=== PATIENT | male | born 1960 | race Caucasian/White ===

== ENCOUNTER → 2019-06-04 07:57 | Outpatient (CLI) | payer BC ==
[2014-11-12 12:09] VITALS: BMI 28.6
--- NOTE | ~2019-06-04 | ST ---
PATIENT:JOSEPH JIMÉNEZ MEDICAL RECORD: [id number] SEX: M LOCATION:[facility] ORDER #: ADMISSION DATE: 06/04/19 AGE OF PATIENT: 58 REFERRING PHYSICIAN: INTERPRETING PHYSICIAN: NEIL REYNOSO MD DATE OF SERVICE: 06/04/2019 Nuclear Stress Test INDICATIONS: Angina, coronary artery disease, abnormal ECG, preoperative evaluation. He was exercised on standard Lexiscan protocol with 33 mCi of sestamibi injected at peak stress, 11 mCi used previously for rest images. FINDINGS: Gated SPECT reveals a decreased ejection fraction at 36% with decreased thickening and brightening throughout the anterior segments. SPECT Imaging: Cardiolite was used as myocardial perfusion agent. There is a fixed perfusion defect anteriorly and apically compatible with previous anteroapical myocardial infarction; however, there is a mixed perfusion defect, partially fixed, partially reversible throughout the inferior segments. This includes the basal, mid, apical, inferior segments. OVERALL IMPRESSION: This is a high-risk abnormal nuclear stress test showing an ischemic cardiomyopathy, ejection fraction 36%, suggestive of a previous myocardial infarction with ongoing continued ischemia suggestive of multivessel coronary artery disease. TRANSINT:[id number] Voice Confirmation ID: [id number] DOCUMENT ID: [id number] NEIL REYNOSO MD CC: DELMI GONZALEZ [id number] DICTATION DATE: 06/07/19 1045 CASHIER AND SALESPERSON: 06/08/19 0337 [facility] CLI 06/04/19 [place] [address] [place] [address]
[~2019-06-04 07:57] MED LIST: ASPIRIN325 MG; DESERYL100 MG PO; DIOVAN HCT 160/1 TAB; DULERA 100 MCG8.8 GM; DULERA 100 MCG8.8 GM INH; GLUCOTROL 5 MG T5 MG PO; HYDROCODON-ACET15 ML PO; JANUMET 50-1,001 TAB PO; JANUMET 50-5001 TAB; JANUMET 50-5001 TAB PO; LIPITOR20 MG PO; LISINOPRIL2.5 MG PO; NITROLINGUAL SP12 GM SL; PLAVIX75 MG PO; PROTONIX40 MG PO; REGLAN; REGLAN10 MG PO; SINGULAIR10 MG; SINGULAIR10 MG PO; TENORMIN50 MG PO; WELCHOL625 MG; WELLBUTRIN XL150 M1 PO; XOPENEX HFA15 GM; XOPENEX HFA15 GM INH; ZETIA10 MG PO; ZOFRAN ODT4 MG/UDTAB PO; ZYLOPRIM300 MG
== END | disposition home or self-care (01) ==
LOC: D.HCCARDIO 05-31 09:30 → D.HCCECHO 05-31 09:30 → D.HCCARDIO 07:57
PROVIDERS: ATTEND Internal Medicine Interventional Cardiology
DX: I25.10 Atherosclerotic heart disease of native coronary artery without angina pectoris (principal)

== ENCOUNTER 2019-06-11 06:56 | Outpatient (CLI) | payer BC ==
[~2019-06-11] VITALS: Ht 181.9 cm; Wt 95.5 kg
--- NOTE | ~2019-06-11 | OP ---
PATIENT NAME: JOSEPH JIMÉNEZ MEDICAL RECORD: [id number] :56 LOCATION:D.CAT ADMISSION DATE: SURGEON: NEIL REYNOSO MD DATE OF OPERATION: 06/11/2019 DATE OF SERVICE: 06/11/2019 PROCEDURES: 1. PTCA stent left circumflex. 2. PTCA stent LAD. 3. PTCA LAD diagonal. 4. Left heart catheterization. 5. Selective coronary angiography. 6. Left ventriculogram. INDICATION: Angina and coronary artery disease. PROCEDURE IN DETAIL: After informed consent was obtained and after a detailed description of the risks, benefits as well as alternative therapies, the patient elected to proceed with angiogram and angioplasty. The right femoral area was prepped and draped in normal sterile fashion. Right femoral artery was cannulated via modified Seldinger technique with placement of 6-Setswana sheath. All catheters exchanged through this sheath. FINDINGS: Left ventriculogram was performed in a standard 30-degree PEREZ view reveals global hypokinesis, ejection fraction is 30%. SELECTIVE CORONARY ANGIOGRAPHY: 1. Left main is with no significant angiographic disease. 2. Left anterior descending has previously placed stents in the LAD and the LAD diagonal. There is 90% in-stent restenosis in the LAD diagonal. The stents in the LAD are patent; however, there is 90% stenosis elsewise. 3. Left circumflex has 95% stenosis in the mid vessel. 4. Right coronary has mild irregularities, but no flow-limiting stenosis. PTCA STENT OF THE LEFT CIRCUMFLEX: The stent used was a 2.5 x 12 mm Joes. Result was 0% residual stenosis. PTCA STENT OF THE LAD: The stents used were 2.5 x 15 and 2.25 x 15. The LAD diagonal was addressed with a 2.5 stent balloon. Result was 0% residual. IMPRESSION: Successful percutaneous transluminal coronary angioplasty stent of the left anterior descending and circumflex going from 90% to 95% initial stenosis to 0% residual. TRANSINT:[id number] Voice Confirmation ID: [id number] DOCUMENT ID: [id number] OPERATIVE REPORT [id number] JOSEPH JIMÉNEZ NEIL REYNOSO MD CC: [id number] DICTATION DATE: 06/11/19 0946 BRANCH OPERATIONS SPECIALIST: 06/11/19 1412 DEP CLI 06/11/19 [facility] [address] [place] [address]
--- NOTE | ~2019-06-11 | HEMODYNAMI ---
PATIENT:JOSEPH JIMÉNEZ MEDICAL RECORD: [id number] : 56 LOCATION:DSandyCAT ADMISSION DATE: 06/11/19 Generatedon:06/11/20199:44 Patient name: JOSEPH JIMÉNEZ Patient #: [id number] SSN: [id number] : 1960 Date of study: 06/11/2019 Page: Of Hemodynamic Procedure Report Patient Data Patient Demographics Procedure consent was obtained First Name: Gender: Male Last Name: TINO : 1960 [facility] Initial: ADONIS Age: 58 year(s) Patient #: [id number] Race: SSN: [id number] Additional ID: [id number] Contact details Address: [address] [place] [address] State: [place] City: [place] Zip code: [address] Past Medical History Performed procedures and imaging results Date Procedure Procedure Results Comments Stress testing Positive->Intermediate with SPECT MPI risk Allergies Allergen Reaction Date Comments Reported Sulfa drugs 06/11/2019 Admission Admission Data Admission Date: 06/11/2019 Admission Time: 6:56 Arrival Date: 06/11/2019 Arrival Time: 0:00 Height (in.): 71.65 BSA: 2.16 (m2) Height (cm.): 182 BMI: 28.68 (kg/m2) Weight (lbs.): 209.44 Weight (kg.): 95 Lab Results Lab Result Date: 06/11/2019 Lab Result Time: 1:00 CBC Name Units Result Min Max Hematocrit % 45.4 --(-*--)-- 42 54 Hemoglobin g/dl 15.2 --(-*--)-- 13.5 17.5 Procedure Procedure Types Cath Procedure Diagnostic Procedure [facility] w/Coronaries Sedation Charges Moderate Sedation up to 15 minutes PCI Procedure Coronary Stent Coronary Stent Initial x2 PTCA PTCA Additional Hemochron ACT Test Procedure Description Procedure Date Procedure Date: 06/11/2019 Procedure Start Time: 9:18 Procedure End Time: 9:41 Procedure Staff Name Function Azeem Solano MD Performing Physician Carisa Grossman RT Monitor Cortney Flynn RT Scrub Javon Lambert RN Nurse Procedure Data Cath Procedure Fluoroscopy Diagnostic fluoroscopy Total fluoroscopy Time: 5.4 time: 5.4 min min Diagnostic fluoroscopy Total fluoroscopy dose: dose: 1116 mGy 1116 mGy Contrast Material Contrast Material Type Amount (ml) Isovue 300 112 Entry Location Entry Primary Successful Side Size Upsize Upsize Entry Closure Succes sful Closure Location (Fr) 1 (Fr) 2 (Fr) Remarks Device Remarks Femoral Right 5 Fr 6 Fr Exoseal artery Short Estimated blood loss: 10 ml Diagnostic catheters Device Type Used For End Catheter Placement MULTIPACK Pigtail 5 Fr Procedure catheter MULTIPACK JL 4.0 5Fr Procedure catheter MULTIPACK 3DRC 5Fr Procedure catheter Procedure Complications No complications Procedure Medications Medication Administration Route Dosage 0.9% NaCl I.V. 100 ml/hr Oxygen etCO2 Nasal cannula 2 l/min Heparin Flush Bag added to field 2 bags (1000units/500ml NS) Lidocaine 2% added to field 20 Versed I.V. 2 mg Fentanyl I.V. 100 mcg Heparin Bolus I.V. 4000 units Hemodynamics Rest BSA: 2.16 (m2) HGB: 15.2 (g/dl) O2 Consumption: Estimated: 252.6 (ml/min) O2 Con sumption indexed: Estimated:116.94 (ml/min/m) Heart Rate: 68 (bpm) Snapshots Pre Cath Intra NCS Post Cath Vital Signs Time Heart Resp SPO2 etCO2 NIBP Rhythm Pain Sedation Rate (ipm) (%) (mmHg) (mmHg) Status Level (bpm) 8:50:47 72 18 94 0 100/70(83) NSR 0 (11) 10(A) , No pain 8:54:52 68 20 94 0 98/72(89) NSR 0 (11) 10(A) , No pain 8:58:56 66 11 96 19.7 99/73(87) NSR 0 (11) 10(A) , No pain 9:03:00 67 11 96 40.3 97/71(82) NSR 0 (11) 10(A) , No pain 9:07:05 68 11 96 20.5 98/66(89) NSR 0 (11) 10(A) , No pain 9:11:11 64 11 97 38 100/65(82) NSR 0 (11) 10(A) , No pain 9:15:15 64 12 96 40.3 97/75(85) NSR 0 (11) 10(A) , No pain 9:19:21 67 14 96 33.4 91/67(78) NSR 0 (11) 10(A) , No pain 9:23:27 68 11 96 39.4 96/57(84) NSR 0 (11) 9(A) , No pain 9:27:33 68 11 96 42.6 106/67(91) NSR 0 (11) 9(A) , No pain 9:31:40 68 12 95 31.9 99/66(75) NSR 0 (11) 9(A) , No pain 9:35:46 67 15 96 37.2 98/70(85) NSR 0 (11) 10(A) , No pain 9:39:54 66 11 96 11.4 100/61(81) NSR 0 (11) 10(A) , No pain Medications Time Medication Route Dose Verified Delivered Reason Notes Effectiveness by by 8:49:30 0.9% NaCl I.V. 100 Javon Javon Per physician ml/hr Petra Lambert RN RN 8:49:44 Oxygen etCO2 2 Javon Javon for low 02 sats Nasal l/min Petra Lambert cannula RN RN 8:49:56 Heparin Flush added 2 Javon Javon used for Bag to bags Petra Lambert procedure (1000units/500ml RN RN NS) 8:50:06 Lidocaine 2% added 20ml Javon Javon for local to vial Petra Lambert anesthetic field ORE RN 9:16:12 Versed I.V. 2 mg Javon Javon for sedation Petra Lambert RN RN 9:16:20 Fentanyl I.V. 100 Javon Javon for sedation mcg Petra Lambert RN RN 9:27:37 Heparin Bolus I.V. 4000 Javon Javon for units Petra Lambert anticoagulation RN transformer assembly supervisor Log Time Note 8:25:04 Informed consent obtained and on chart 8:28:02 Patient Weight : 209.44 lbs 8:28:06 Patient Height : 71.65 inches 8:28:10 Arrival Date: 06/11/2019 12:00:00 AM 8:30:56 Lab Result : Creatinine 0.8 mg/dl 8:30:56 Lab Result : BUN 21 mg/dl 8:30:56 Lab Result : eGFR NONAFRICAN 90 ml/min 8:31:33 H&P Date Dictated: 06/11/2019 Within 30 days and on chart., H&P Addendum completed by physician on day of procedure. (MUST COMPLETE FOR ALL OUTPATIENTS). 8:31:50 Patient allergic to Sulfa drugs 8:35:17 Stress Test: yes; abnormal ANTERIORLY 8:36:49 Procedure Status Elective Heart Cath (OP). 8:36:51 Time tracking: Regular hours (M-F 7:00 - 5:00) 8:37:10 Javon Lambert RN sent for patient. Start room use. 8:37:22 Plan of Care:Hemodynamics will remain stable., Cardiac rhythm will remain stable., Comfort level will be maintained., Respiratory function will remain adequate., Patient/ family verbilizes understanding of procedure., Procedure tolerated without complication., Recovers from procedure without complications.. 8:40:26 Patient received from Pre/Post Procedure Room to CCL 1 Alert and oriented. Tansferred to table in Supine position. 8:40:28 Warm blankets applied, and bell hugger turned on for patient comfort. 8:40:28 Correct patient and procedure confirmed by team. 8:40:29 ECG and BP/O2 sat monitors applied to patient. 8:49:30 0.9% NaCl 100 ml/hr I.V. was administered by Javon Lambert RN; Per physician; Verbal order read back and verified. 8:49:42 Vital chart was started 8:49:43 Baseline sample Acquired. 8:49:44 Oxygen 2 l/min etCO2 Nasal cannula was administered by Javon Lambert RN; for low 02 sats; Verbal order read back and verified. 8:49:46 Rhythm: sinus rhythm 8:49:47 Full Disclosure recording started 8:49:49 Pre-procedure instructions explained to patient. 8:49:50 Pre-op teaching completed and patient verbalized understanding. 8:49:52 Family in patients room. 8:49:56 Heparin Flush Bag (1000units/500ml NS) 2 bags added to field was administered by Javon Lambert RN; used for procedure; Verbal order read back and verified. 8:49:56 Patient NPO since Midnight. 8:49:57 Is patient on blood thinner?Yes 8:50:00 ACC The patient was administered the following blood thiners within the last 24 hours: ACCPlavix 8:50:03 Patient diabetic? Yes. 8:50:05 If diabetic: On Metformin? Yes 8:50:06 Lidocaine 2% 20ml vial added to field was administered by Javon Lambert RN; for local anesthetic; Verbal order read back and verified. 8:50:14 Previous problem with sedation/anesthesia? No ? 8:50:16 Snore? Yes 8:50:17 Sleep apnea? No 8:50:18 Deviated septum? No 8:50:19 Opens mouth fully? Yes 8:50:20 Sticks out tongue? Yes 8:50:22 Airway obstruction? No ? 8:50:25 Dentures? No ? 8:50:29 Pre procedure: right dorsailis pedis pulse 2+ Normal; easily identifiable; not easily obliterated 8:50:31 Patient pain scale 0/10 ?. 8:50:35 IV patent on arrival in left hand with 0.9% NaCl at O. 8:50:40 Lab results completed and on chart. 8:50:44 Right groin area was prepped with chlora-prep and draped in sterile fashion 8:50:45 Alarms reviewed by R. N. 8:50:45 Sharps counted by scrub and verified by R.N. 8:59:17 Use device set Femoral Dx 8:59:19 ACIST Syringe (29658) opened to sterile field. 8:59:20 Bag Decanter () opened to sterile field. 8:59:21 ACIST Hand Control (98059) opened to sterile field. 8:59:21 ACIST Manifold (10818) opened to sterile field. 8:59:22 Tegaderm 4 x 4 (1626W) opened to sterile field. 8:59:23 Medline Cath Pack ([id number]) opened to sterile field. 8:59:25 DIAGNOSTIC Multipack 5Fr catheter set ([id number]) opened to sterile field. 8:59:[address] (ESY121) opened to sterile field. 8:59:27 EMERALD Guide Wire (502-784) opened to sterile field. 9:02:46 Lab Result : Hemoglobin 15.2 g/dl ::46 Lab Result : Hematocrit 45.4 % 9:03:52 Risk of Mortality: .1 9:03:57 Risk of blood transfusion: 1.7 9:04:00 Risk of GEOVANNY: .5 9:08:58 Zero performed for pressure channel P1 9:15:45 --------ALL STOP TIME OUT------ ::46 Final Timeout: patient, procedure, and site verified with staff and physician. All members of the team are in agreement. 9:15:47 Right groin site verified by team. 9:15:50 Fire Safety Assessment: A--An alcohol-based skin anteseptic being used preoperatively., C--Open oxygen or nitrous oxide is being used., D--An ESU, laser, or fiber-optic light is being used. 9:15:53 Physical assessment completed. ASA score P 2 - A patient with mild systemic disease as per Azeem Solano MD. 9:15:56 1) 90+ Normal kidney functon but urine findings or structural abnormalities or genetic trait point to kidney disease. 9:15:58 Maximum allowable contrast dose (3.7 X eGFR X 0.75)250 ml. 9:16:02 Sedation plan: IV Moderate Sedation Medication:Versed, Fentanyl 9:16:12 Versed 2 mg I.V. was administered by Javon Lambert RN; for sedation; Verbal order read back and verified. 9:16:20 Fentanyl 100 mcg I.V. was administered by Javon Lambert RN; for sedation; Verbal order read back and verified. 9:18:51 Procedure started. 9:18:56 Local anesthetic to right femoral artery with Lidocaine 2% by Azeem Solano MD.INITIAL ACCESS ONLY 9:23:02 A 5 Fr sheath was inserted into the Right Femoral artery 9:23:11 A MULTIPACK Pigtail 5 Fr catheter was advanced over the wire and used for Procedure. 9:23:15 LV gram done using PEREZ 9:23:17 Injector settings: Ml/sec: 10, Volume: 20, 9:23:48 EF : 30 % 9:24:26 Catheter removed. 9:24:36 A MULTIPACK JL 4.0 5Fr catheter was advanced over the wire and used for Procedure. 9:24:52 LCA angiography performed. 9:24:53 Catheter removed. 9:24:59 A MULTIPACK 3DRC 5Fr catheter was advanced over the wire and used for Procedure. 9:26:08 RCA angiography performed. 9:26:09 Catheter removed. 9:26:15 Proceeding to intervention. 9:26:[address] (IRG010) opened to sterile field. 9::22 INFLATOR Merit BasixCompak (XL0588) opened to sterile field. 9:26:23 CHOICE PT Extra Support 182cm wire ([id number]) opened to sterile field. 9:26:29 GUIDE 6FR XBLAD 3.5 catheter ([id number]) opened to sterile field. 9:27:03 Sheath upsized to a 6 Fr Short. 9:27:36 6 Fr XBLAD 3.5 guide catheter was inserted over the wire 9:27:37 Heparin Bolus 4000 units I.V. was administered by Javon Lambert RN; for anticoagulation; Verbal order read back and verified. 9:28:30 CHOICE ES 182 wire advanced. 9:29:04 Wire advanced across lesion. 9:29:25 Pre PCI Site: [place] mCirc has 90% stenosis. 9:30:13 Place stent Inflation Number: 1 A PHILLIP RX 2.5 x 12 stent ([id number]) was prepped and advanced across the Mid CX . The stent was deployed at 13 SIMON for 0:00 (min:sec) . 9:30:43 Stent catheter was removed intact over wire. 9:30:46 Wire redirected to LAD. 9:31:50 Pre PCI Site: [place] mLAD has 90% stenosis. 9:33:04 Place stent Inflation Number: 1 A PHILLIP RX 2.5 x 15 stent ([id number]) was prepped and advanced across the Mid LAD . The stent was deployed at 21 SIMON for 0:00 (min:sec) . 9:33:10 Stent catheter was removed intact over wire. 9:33:21 Wire redirected to DIAG. 9:33:50 Inflation number: 1 The stent balloon was then re-inflated across the 1st Diag to 21 SIMON for 0:00 (min:sec) . 9:34:28 Stent catheter was removed intact over wire. 9:34:40 Wire redirected to LAD. 9:35:50 Place stent Inflation Number: 2 A PHILLIP RX 2.25 x 15 stent ([id number]) was prepped and advanced across the Mid LAD . The stent was deployed at 17 SIMON for 0:00 (min:sec) . 9:36:04 Inflation number: 3 The stent balloon was then re-inflated across the Mid LAD to 17 SIMON for 0:00 (min:sec) . 9:36:25 Stent catheter was removed intact over wire. 9:37:01 Wire removed. 9:37:01 Guide catheter removed. 9:37:07 EXOSEAL 6Fr (EX600) opened to sterile field. 9:37:15 Sheath removed intact; hemostasis achieved with Exoseal to the Right Femoral artery. 9:37:17 Procedure ended.(Physican Out) 9:38:48 ACT drawn and resulted at 260 seconds. (normal therapeutic range 180-240 seconds). 9:38:54 Fluoroscopy time 05.40 minutes. 9:38:58 Fluoroscopy dose: 1116 mGy 9:38:58 Flurop Dose total: 1116 9:39:05 Dose Area Product 16484 mGy/cm. 9:39:08 Contrast amount:Isovue 300 112ml. 9:39:10 Maximum allowable dose exceeded? No. 9:39:11 Sharps counted by scrub and verified by R.N. 9:39:15 Post-op/insertion site Right Femoral artery dressed using a 4 x 4 and Tegaderm. 9:39:18 Post-procedure physical assessment completed. ASA score P 2 - A patient with mild systemic disease as per Azeem Solano MD. 9:39:21 Post procedure rhythm: sinus rhythm 9:39:24 Estimated blood loss: 10 ml 9:39:25 Post procedure instruction explained to patient.Patient verbalizes understanding. 9:39:25 Patient needs reinforcement of post procedure teaching. 9:39:57 Procedure type changed to Cath procedure, Diagnostic procedure, LHC, [facility] w/Coronaries, Sedation Charges, Moderate Sedation up to 15 minutes, PCI procedure, Coronary Stent, Coronary Stent Initial x2, PTCA, PTCA Additional, Hemochron ACT Test 9:41:19 Procedure and supply charges have been captured, reviewed, submitted and are correct. 9:41:22 Procedure Complication : No complications 9:41:24 Vital chart was stopped 9:41:26 [facility] Findings: MVD- PCI performed (see procedure note) 9:41:28 Operative report dictated upon procedure completion. 9:41:28 See physician's report for complete and final results. 9:41:30 Report given to Pre/Post Procedure Room. 9:41:32 Patient transfered to Pre/Post Procedure Room with Bed. 9:41:34 Procedure ended. 9:41:34 Full Disclosure recording stopped 9:41:40 ACC-PCI Only Patient was given prescriptions, or instructed by Azeem Solano MD to start/continue the following medications upon discharge: Plavix 9:41:42 End room use (Document Last) 9:43:25 End room use (Document Last) 9:44:01 End room use (Document Last) Intervention Summary Intervention Notes Time ActionType Lesion and Equipment Used Action# Pressure Duration Attributes 9:30:13 Place stent Mid CX PHILLIP RX 2.5 x 1 13 00:00 12 stent ([id number]) 9:33:04 Place stent Mid LAD PHILLIP RX 2.5 x 1 21 00:00 15 stent ([id number]) 9:33:50 Reinflate 1st Diag PHILLIP RX 2.5 x 1 21 00:00 stent 15 stent balloon ([id number]) 9:35:50 Place stent Mid LAD PHILLIP RX 2.25 x 2 17 00:00 15 stent ([id number]) 9:36:04 Reinflate Mid LAD PHILLIP RX 2.25 x 3 17 00:00 stent 15 stent balloon ([id number]) Device Usage Item Name Manufacture Quantity Catalog Number Hospital Part Current M inimal Lot# / Charge Number Stock Stock Serial# Code ACIST Syringe Acist 1 61431 284537 223124 217124 2 0 (21973) Medical Systems Inc Bag Decanter Microtek 1 2001S 385471 51763 836454 5 () Medical Inc. ACIST Hand Acist 1 06158 809547 251467 500141 5 Control Medical (76203) Systems Inc ACIST Manifold Acist 1 84778 833796 390888 482850 5 (12092) Medical Systems Inc Tegaderm 4 x 4 3M 1 1626W 675035 106253 627426 5 (1626W) Medline Cath Medline 1 [id number] 168253 00427 438507 5 Pack ([id number]) DIAGNOSTIC Cardinal 1 XQ0542 351661 29247 498534 3 0 Multipack 5Fr Health catheter set (AG2856) SHEATH 5FR Terumo [address]NV[address] 66[address] 468[address] (KRI107) EMERALD Guide Cardinal 1 502-455 836604 359119 162048 5 Wire (502-455) Health MULTIPACK Cardinal 1 711709 5 Pigtail 5 Fr Health catheter MULTIPACK JL Cardinal 1 208299 5 4.0 5Fr Health catheter MULTIPACK 3DRC Cardinal 1 990327 5 5Fr catheter Health SHEATH 6FR Terumo 1 LEL523 384759 25[address]26 [address] (EPK685) INFLATOR Merit Merit 1 MP0926 764114 410578 494983 1 5 [employer] (IU3070) CHOICE PT [place] 1 [id number] 211184 125520 522338 5 Extra Support Scientific 182cm wire ([id number]) GUIDE 6FR Cardinal 1 [id number] 998820 726000 962844 1 0 XBLAD 3.5 Health catheter (44324837) PHILLIP RX 2.5 x Medtronic 1 [id number] 758185 5785961 924191 5 [id number] 12 stent ([id number]) PHILLIP RX 2.5 x Medtronic 1 [id number] 230900 8812950 082061 5 [id number] 15 stent ([id number]) PHILLIP RX 2.25 x Medtronic 1 [id number] 747503 7944391 964052 5 [id number] 15 stent ([id number]) EXOSEAL 6Fr Cardinal 1 EX600 848303 096986 653366 1 0 (EX600) Health Signature Audit Frederic Stage Time Signature Unsigned Intra-Procedure 06/11/2019 Carisa Grossman 9:43:25 AM RT(R) Intra-Procedure 06/11/2019 Javon 9:44:01 AM Petra ROE Intra-Procedure 06/11/2019 Azeem Solano 9:44:26 AM [facility] [address] [place] [address]
[2019-06-11] MEDS ORDERED: PIOGLITAZONE15 MG PO (07:25)
[2019-06-11] MEDS ORDERED: FARXIGA10 MG PO (07:28)
[2019-06-11] MEDS ORDERED: PEPCID40 MG PO (07:28)
[2019-06-11 07:47] VITALS: BP 115/75; Ht 181.9 cm; Wt 95.5 kg
[2019-06-11 08:24] LABS: ALT (SGPT) 27 U/L (10-68); CALC OSMOLALITY 283 mosm/kg (275-300); CALCIUM 8.7 mg/dL (8.5-10.1); CARBON DIOXIDE 26.7 mmol/L (21.0-32.0); CHLORIDE - SERUM 102 mmol/L (98-107); CHOL - HDL RATIO 2.1 ratio (2.3-4.9); CHOLESTEROL, TOTAL 137 mg/dL (0-200); CREATININE - SERUM 0.8 mg/dL (0.6-1.3); GLUCOSE 154 mg/dL (74-106); HDL CHOLESTEROL 65 mg/dL (32-96); LDL CHOLESTEROL 57 mg/dL (0-100); LDL-HDL RATIO 0.9 ratio (1.5-3.5); POTASSIUM - SERUM 3.9 mmol/L (3.5-5.1); SODIUM 139 mmol/L (136-145); TRIGLYCERIDE 76 mg/dL (30-200); UREA NITROGEN 21 mg/dL (7-18); eGFR NON AFRICAN AMERICAN > 90 mL/min (90-120)
[2019-06-11 08:51] LABS: HEMATOCRIT 45.4 % (42.0-54.0); HEMOGLOBIN 15.2 g/dL (13.5-17.5); MCH 30.2 pg (26.0-34.0); MCHC 33.5 g/dL (31.0-37.0); MCV 90.1 fL (80.0-100.0); MEAN PLATELET VOLUME 10.4 fL (7.4-10.4); PLATELET COUNT 256 10x3/uL (130-400); RBC 5.04 10x6/uL (4.20-6.10); RDW 14.4 % (11.5-14.5); WBC 7.6 10x3/uL (4.8-10.8)
--- NOTE | 2019-06-11 09:55 | NUR ---
PT RECEIVED VIA STRETCHER FROM MEDICAL RESEARCH SCIENTIST FOR RECOVERY, PT SLEEPING BUT VERBALLY AROUSABLE. PT DENIES PAIN OR DISCOMFORT AT THIS TIME. PT PLACED ON CARDIAC MONITORS, HR NSR RATE 63, BP 104/68, RR 13, SAT 97 ON ROOM AIR. R GROIN W 6FR EXOCELE, DRESSING CDI NO BLEEDING OR S/S HEMATOMA NOTED. LEG PINK AND WARM, PEDAL PULSES PALPABLE. IV PATENT INFUSING VIA L ARM PER ORDERS. PT INSTRUCTED TO KEEP HEAD FLAT ON PILLOW AND R LEG STRAIGHT, HE VERBALIZED UNDERSTANDING. CALL LIGHT IN REACH
--- NOTE | 2019-06-11 10:15 | NUR ---
PT RESTING COMFORTABLY, DENIES PAIN OR NEEDS AT THIS TIME. R GROIN SOFT, DRESSING CDI NO BLEEDING OR S/S HEMATOMA NOTED. PEDAL PULSES PALPABLE. HR 62, BP 96/63, RR 10, SAT 95 ON ROOM AIR. AT BS, CALL LIGHT IN REACH
[2019-06-11 10:27] LABS: BASOPHILS 1 % (0-2); EOSINOPHILS 4 % (0-7); LYMPHOCYTES 42 % (15-50); MONOCYTES 9 % (2-11); NEUTROPHILS 40 % (40-80); PLATELET ESTIMATE NORMAL; ROULEAUX OCC
--- NOTE | 2019-06-11 11:03 | NUR ---
PT RESTING COMFORTABLY. R GROIN SOFT, DRESSING REMAINS CDI NO BLEEDING OR S/S HEMATOMA NOTED. VSS. CALL LIGHT IN REACH
--- NOTE | 2019-06-11 11:30 | NUR ---
BP REMAINS LOW, 90/60. IV FLUIDS OPENED, HOB LOWERED. WARM BLANKETS GIVEN. PT DENIES ANY PAIN OR S/S HYPOTENSION. R GROIN REMAINS SOFT, DRESSING CDI NO BLEEDING OR S/S HEMATOMA NOTED. FAMILY AT
--- NOTE | 2019-06-11 12:01 | NUR ---
PT RESTING COMFORTABLY, R GROIN SOFT, DRESSING REMAINS CDI NO BLEEDING OR S/S HEMATOMA NOTED. BP BETTER, 95/61. FAMILY AT BS, CALL LIGHT IN REACH
--- NOTE | 2019-06-11 12:28 | NUR ---
R GROIN SOFT, DRESSING CDI NO BLEEDING OR S/S HEMATOMA NOTED. PEDAL PULSES PALPABLE. HR 59, BP 87/52, RR 12, SAT 96 ON ROOM AIR. IV INFUSING VIA ORDERS. CALL LIGHT IN REACH, FAMILY AT BS. PT DENIES PAIN OR NEEDS AT THIS TIME.
--- NOTE | 2019-06-11 12:40 | NUR ---
DR REYNOSO AT , DISCUSSED W PT AND PROCEDURE RESULTS AND PLAN OF CARE. R GROIN W/O S/S HEMATOMA. HOB ELEVATED SLIGHTLY. SANDWICH AND DRINK SERVED. PT DENIES OTHER NEEDS. CALL LIGHT REMAINS IN REACH. VSS.
--- NOTE | 2019-06-11 13:10 | NUR ---
PT RESTING W/O COMPLAINTS. TOLERATED LUNCH W/O NAUSEA. HR 67, BP 101/69, RR 14, SAT 98 ON ROOM AIR. GROIN SOFT, DRESSING REMAINS CDI NO BLEEDING OR S/S HEMATOMA NOTED. PEDAL PULSES PALPABLE. CALL LIGHT IN REACH.
--- NOTE | 2019-06-11 13:38 | NUR ---
DISCHARGE INSTRUCTIONS REVIEWED W PT, HE VERBALIZED UNDERSTANDING. IV REMOVED W CATH INTACT, MONITORS REMOVED. PT UP TO DRESS FOR DISCHARGE
--- NOTE | 2019-06-11 13:49 | NUR ---
PT AMBULATED TO BR, VOIDING W/O DIFFICULITY. PT THEN DISCHARGED VIA WC TO DAUGHTER WAITING IN PRIVATE VEHICLE. PT HAD ALL BELONGINGS AND DISCHARGE INFORMATION.
== END 2019-06-11 13:50 | disposition home or self-care (01) ==
LOC: D.CATH 06:56
PROVIDERS: ATTEND Internal Medicine Interventional Cardiology
DX: I25.119 Atherosclerotic heart disease of native coronary artery with unspecified angina pectoris (principal); R94.39 Abnormal result of other cardiovascular function study; E11.9 Type 2 diabetes mellitus without complications; E78.5 Hyperlipidemia, unspecified; I10 Essential (primary) hypertension; R06.00 Dyspnea, unspecified; R00.0 Tachycardia, unspecified; Z01.810 Encounter for preprocedural cardiovascular examination

== ENCOUNTER → 2019-11-24 13:46 | Outpatient (CLI) | payer BC ==
[2019-06-11 07:47] VITALS: BMI 28.8
[~2019-11-24 13:46] MED LIST changes: +FARXIGA10 MG PO; +PEPCID40 MG PO; +PIOGLITAZONE15 MG PO
== END | disposition home or self-care (01) ==
LOC: D.HCCECHO 13:46
PROVIDERS: ATTEND Internal Medicine Interventional Cardiology
DX: I42.9 Cardiomyopathy, unspecified (principal)

== ENCOUNTER → 2020-08-29 18:14 | Outpatient (CLI) | payer BC ==
[2019-06-11 07:47] VITALS: BMI 28.8
[2020-08-29 22:22] LABS: LDL-HDL RATIO 0.9 ratio (1.5-3.5)
== END | disposition home or self-care (01) ==
LOC: D.LABREF 18:14
PROVIDERS: ATTEND Nurse Practitioner
DX: E78.5 Hyperlipidemia, unspecified (principal)

== ENCOUNTER → 2020-10-04 10:00 | Outpatient (CLI) | payer BC ==
[2019-06-11 07:47] VITALS: BMI 28.8
== END | disposition home or self-care (01) ==
LOC: D.HCCECHO 09-28 13:30
PROVIDERS: ATTEND Internal Medicine Cardiovascular Disease
DX: I25.10 Atherosclerotic heart disease of native coronary artery without angina pectoris (principal)